=== PATIENT | male | born 2000 | race Caucasian/White ===

== ENCOUNTER 2024-02-06 08:27 | Outpatient (AMB) | payer BC, SELFPAY ==
[2024-02-06 09:15] VITALS: BP 112/74; PULSE 72; TEMP 37.1; O2SAT 99; BMI 25.5
--- NOTE | 2024-02-06 09:15 | AM.OFFWIN_ITS ---
Intake Vital Signs 02/06/24 09:15 Height 5 ft 11 in Weight 183 lb BMI 25.5 BP 112/74 Blood Pressure Location Rt brachial Position Sitting Pulse 72 Pulse Source Pulse Oximeter Temp 98.8 F Temp Source Oral Pulse Oximetry (%) 99 Oxygen Delivery Method Room Air Intake Visit Reasons: [employer] ?Sty Intake Note: pt c/o LT eye pain and swelling. Started yesterday Patient Tobacco Use Status: Former Tobacco user Allergies No Known Allergies [No Known Allergies*] Allergy (Verified 02/06/24 09:19) Do you need a note to return to daycare/school/sports/work: Yes HPI [employer] ?Sty HPI Details This note is constructed using voice recognition software. While every effort has been made to ensure accuracy, plugger man errors may have been included. The patient is a 23 year old male who presents to the clinic today with left upper eyelid irritation onset yesterday. When he woke up this morning the irritation seemed a little bit worse. Due to the swelling that he was having he decided to try to put an ice cube on it which helped temporarily but the area persistent. He denies any discharge mentally, any fevers, chills, cough, shortness of breath, or any other URI symptoms. He has no difficulty with vision, or pain moving his eyes. [facility] Social History Patient Tobacco Use Status: Former Tobacco user Review of Systems Const All systems reviewed & are unremarkable except as noted in HPI and below Physical Exam Vital Signs: Last Vital Signs Temp 98.8 F 02/06/24 09:15 Pulse 72 02/06/24 09:15 BP 112/74 02/06/24 09:15 Pulse Ox 99 02/06/24 09:15 Oxygen Delivery Method Room Air 02/06/24 09:15 BMI result Body Mass Index 25.5 Const General: cooperative, healthy appearing, comfortable, no acute distress and well developed Orientation/consciousness: patient oriented x3 Limitations: no limitations Eyes Visual De La Cruz: normal visual de la cruz by confrontation Alignment and Position: alignment normal Eyelids: Yes eyelid abnormality (Left upper lid hordeolum present with minimal edema.) Conjunctivae: conjunctivae normal Sclerae: sclerae normal Corneas: corneas normal Pupils: Equal, round and reactive pupils present EOM: EOMs intact bilaterally Direct Ophthalmoscopy: normal light reflex Resp Effort & Inspection: normal respiratory effort and able to speak in complete sentences Neuro General: patient oriented x3 Cranial nerves: Yes Equal, round and reactive pupils present Assessment & Plan Assessment & Plan (1) Hordeolum externum left upper eyelid: Code(s): H00.014 - Hordeolum externum left upper eyelid Plan: Advised warm compresses minimum 4 times per day. Erythromycin ointment ordered for symptomatic management only. Advised patient to see Ophthalmology should he develop any difficulty with vision, or pain on movement of the eye for urgent evaluation. Plan See above for full details and plan. Medications: New erythromycin 0.5 inches ophthalmic (eye) TID 7 days 3.5 grams 0RF Coding Level of Care Code New Pt Level 3 (52228) Diagnoses Hordeolum externum left upper eyelid H00.014
== END 2024-02-06 10:20 | disposition home or self-care (01) ==
PROVIDERS: PCP Pediatrics; Visit Provider Registered Nurse
DX: H00.014 Hordeolum externum left upper eyelid (principal)
CPT/HCPCS: 99203